=== PATIENT | female | born 1950 | race Caucasian/White ===

== ENCOUNTER 2017-07-30 16:45 | Emergency (ER) | payer MEDICARE, OTHER ==
--- NOTE | 2017-07-30 17:02 | ED.PDOC ---
History of Present Illness - General Chief Complaint: GI Problem Stated Complaint: nausea,stomach cramps,weakness Time Seen by Provider: 07/30/17 16:57 Source: patient Exam Limitations: no limitations - History of Present Illness Initial Comments: Radha Mas 67 y/o female stated thatshe had onset of lower abdominal cramps initially waxing waning but getting more intense for the last one hour and she had cold /clammy sweat during the episodes with feeling of nausea decided to come to ER.Stated had one loose BM this afternoon.Denies vomiting ,chest pains dysuria Timing/Duration: 1-3 hours Severity: moderate Improving Factors: nothing Worsening Factors: nothing Associated Symptoms: other - see hpi Allergies/Adverse Reactions: Allergies Promethazine [From Phenergan] Allergy (Verified 07/14/16 21:12) Home Medications: Ambulatory Orders Albuterol Inhaler [Ventolin Hfa Inhaler] 2 puff INH Q4H PRN 04/13/16 Atorvastatin Calcium [Lipitor] 40 mg PO BEDTIME 04/13/16 Citalopram Hydrobromide 40 mg PO DAILY 04/13/16 Insulin Regular (Human) [Novolin R U-100] 100 unit IJ TID 04/13/16 Levothyroxine Sodium 150 mcg PO DAILY 04/13/16 Lisinopril 20 mg PO DAILY 04/13/16 Pantoprazole Sodium 40 mg PO DAILY 04/13/16 Bupropion HCl [Wellbutrin Sr] 100 mg PO BID 07/14/16 Clopidogrel Bisulfate [Plavix] 75 mg PO QD 07/30/17 Fluticasone/Salmeterol 250/50 [Advair Diskus] 1 puff INH Q12H 07/30/17 Insulin Glargine [Toujeo Solostar] 66 unit SC DAILY 07/30/17 Review of Systems - Review of Systems Constitutional: States: no symptoms reported EENTM: States: no symptoms reported Respiratory: States: no symptoms reported Cardiology: States: no symptoms reported Gastrointestinal/Abdominal: States: see HPI Musculoskeletal: States: no symptoms reported Skin: States: no symptoms reported Past Medical History (General) - Patient Medical History Hx Asthma: Yes Hx Hypertension: Yes Hx Thyroid Disease: Yes Hx Diabetes: Yes Hx Gastroesophageal Reflux: Yes Hx MRSA: Yes MRSA Source:: Wound Surgical History: other - lower back,knee - Vaccination History Hx Tetanus, Diphtheria Vaccination: No Hx Influenza Vaccination: No Hx Pneumococcal Vaccination: No - Social History Hx Tobacco Use: No Hx Alcohol Use: No Hx Substance Use: No Hx Substance Use Treatment: No Hx Depression: Yes - Female History Patient : No Family Medical History - Family History Mother Family History: Unknown Living Status: Unknown Hx Family Congestive Heart Failure: Yes - parents Hx Cardiac Disease: Yes - parents Hx Family Diabetes: Yes - multiple family members Physical Exam - Physical Exam General Appearance: Alert, Comfortable, No apparent distress Eye Exam: bilateral normal Ears, Nose, Throat: hearing grossly normal, normal ENT inspection, normal pharynx Neck: non-tender, full range of motion, supple Respiratory: chest non-tender, lungs clear, normal breath sounds Cardiovascular/Chest: normal peripheral pulses, regular rate, rhythm, no murmur Peripheral Pulses: radial,right: 2+, radial,left: 2+, dorsalis pedis,right: 2+, dorsalis pedis,left: 2+ Gastrointestinal/Abdominal: normal bowel sounds, soft, no organomegaly, no pulsatile mass, tenderness - lower abdomen no peritoneal signs Back Exam: normal inspection, no CVA tenderness, no vertebral tenderness Extremity: non-tender, no pedal edema, no calf tenderness Neurologic: no motor/sensory deficits, alert, normal mood/affect, oriented x 3 Progress - Progress Progress: 07/30/17 18:06 Vital Signs 07/30/17 16:59 Temperature 98.5 F Pulse Rate [ 106 H Left Brachial] Respiratory 20 Rate Blood Pressure 162/78 [Left Arm] O2 Sat by Pulse 99 Oximetry - Results/Orders Results/Orders: Laboratory Tests 07/30/17 07/30/17 17:25 17:25 WBC 10.0 RBC 4.97 Hgb 12.5 Hct 38.1 MCV 76.7 L MCH 25.1 L MCHC 32.7 L RDW 15.0 H Plt Count 241 MPV 9.5 Absolute Neuts (auto) 7.50 H Absolute Lymphs (auto) 1.60 Absolute Monos (auto) 0.80 Absolute Eos (auto) 0.10 Absolute Basos (auto) 0.10 Neutrophils % 75.4 Lymphocytes % 15.5 L Monocytes % 7.5 Eosinophils % 1.1 Basophils % 0.5 PT 12.4 INR 1.100 PTT (SP) 28.4 D-Dimer, Quantitative < 200 Sodium 137 Potassium 3.7 Chloride 104 Carbon Dioxide 24 Anion Gap 12.7 BUN 12 Creatinine 0.86 BUN/Creatinine Ratio 14.0 Random Glucose 190 H Serum Osmolality 278.7 Calcium 9.1 Magnesium 1.6 L Total Bilirubin 0.6 Direct Bilirubin 0.1 Indirect Bilirubin 0.5 AST 24 ALT 12 Alkaline Phosphatase 111 Creatine Kinase 53 CK-MB (CK-2) 1.8 CK-MB (CK-2) % Not Reportable Troponin I < 0.02 B-Natriuretic Peptide 32.2 Serum Total Protein 7.2 Albumin 4.1 Lipase 17 L patient felt better after she had big bowel movement - EKG/XRAY/CT EKG: Sinus, Tachy, nonspecific ST T wave Chg Comments: heart rate-98 XRAY: chest - no acute disease Departure - Departure Clinical Impression: Abdominal cramping, Constipation by delayed colonic transit, Colitis Time of Disposition: 19:36 Disposition: Discharge to Home or Self Care Condition: Fair Departure Forms: ED Discharge - Pt. Copy, Patient Portal Self Enrollment Instructions: DI for Constipation, Increased Dietary Fiber May Improve Constipation Conditions With Pelvic Willis, Constipation (Alternative Therapy) Diet: bland diet Referrals: Chilo Prado MD [Primary Care Provider] - 1-2 Weeks Home Medications: Ambulatory Orders Albuterol Inhaler [Ventolin Hfa Inhaler] 2 puff INH Q4H PRN 04/13/16 Atorvastatin Calcium [Lipitor] 40 mg PO BEDTIME 04/13/16 Citalopram Hydrobromide 40 mg PO DAILY 04/13/16 Insulin Regular (Human) [Novolin R U-100] 100 unit IJ TID 04/13/16 Levothyroxine Sodium 150 mcg PO DAILY 04/13/16 Lisinopril 20 mg PO DAILY 04/13/16 Pantoprazole Sodium 40 mg PO DAILY 04/13/16 Bupropion HCl [Wellbutrin Sr] 100 mg PO BID 07/14/16 Clopidogrel Bisulfate [Plavix] 75 mg PO QD 07/30/17 Fluticasone/Salmeterol 250/50 [Advair Diskus] 1 puff INH Q12H 07/30/17 Insulin Glargine [Toujeo Solostar] 66 unit SC DAILY 07/30/17 Additional Instructions: Follow up with primary md 08/02/2017 Return to emergency room as needed
--- NOTE | 2017-07-30 18:01 | RAD ---
Examination: XR CHEST 1 VIEW dated 07/30/2017 4:59 PM CDT History: pain Comparison: 04/13/2016 Technique: Frontal view of the chest Findings: The lungs are clear bilaterally. Hypoventilatory exam. No pneumothorax or pleural effusion. The cardiomediastinal silhouette is within normal limits. Cervical spinal fusion hardware Impression: No acute disease. Electronically signed by: Car Bishop MD 07/30/2017 6:00 PM CDT
[2017-07-30] MEDS ORDERED: MAGNESIUM SULFATE PREMIX 2GM 2 GM in PREMIX BAG 1 BAG IVPB ONE (18:05)
[2017-07-30] MEDS ORDERED: SODIUM CHLORIDE 0.9% 500ML 500 ML IVS ONE (18:06)
[2017-07-30] MEDS ORDERED: MAGNESIUM SULFATE PREMIX 2GM 50 ML IVPB ONE (18:07)
--- NOTE | 2017-07-30 19:05 | CT ---
EXAM DESCRIPTION: Abdomen/Pelvis w/Contrast CLINICAL HISTORY: pain COMPARISON: None Available TECHNIQUE: Contiguous axial images of the abdomen and pelvis were obtained after the administration of intravenous contrast followed by reconstruction images.This exam was performed according to our departmental dose-optimization program, which includes automated exposure control, adjustment of the mA and/or kV according to patient size and/or use of iterative reconstruction technique. FINDINGS: Low-attenuation lesion of the left kidney could be a cyst. There is moderate stool in the colon. The appendix is not well seen. There is a small hiatal hernia. The descending colon is mildly featureless. Its wall is mildly thickened. There is no significant surrounding inflammation. The liver, spleen, pancreas and kidneys are within normal limits. There is no hydronephrosis. The gallbladder is unremarkable. Adrenal glands are within normal limits. Aorta is normal in caliber and tapering. No significant free fluid. No free air. No bowel obstruction. There is no stranding of the mesenteric fat. No evidence of periappendiceal inflammation. IMPRESSION: Findings suggest inflammation of the descending colon, and constipation. Electronically signed by: Vikash Ivory 07/30/2017 7:03 PM CDT
[2017-07-30 19:52] VITALS: BP 124/72; TEMP 98; O2SAT 97
== END 2017-07-30 19:45 | disposition home or self-care (01) ==
LOC: ER 16:45
DX: K52.9 Noninfective gastroenteritis and colitis, unspecified (principal); K59.01 Slow transit constipation; I10 Essential (primary) hypertension; E11.9 Type 2 diabetes mellitus without complications; K21.9 Gastro-esophageal reflux disease without esophagitis; Z79.4 Long term (current) use of insulin; Z79.899 Other long term (current) drug therapy
CPT/HCPCS: 36415; 71010; 74177; 80048; 80076; 81001; 82550; 82553; 83690; 83880; 84484; 85025; 85379; 85610; 85730; 93005; J3475; J7040

== ENCOUNTER 2019-01-21 01:50 | Emergency (ER) | payer OTHER ==
[2019-01-21] MEDS ORDERED: SODIUM CHLORIDE 0.9% 1000ML 1,000 ML IVS ONE (02:10)
--- NOTE | 2019-01-21 02:10 | ED.PDOC ---
History of Present Illness - General Chief Complaint: General Stated Complaint: "had a weaknes spell" at work Time Seen by Provider: 01/21/19 02:08 Source: patient Exam Limitations: no limitations - History of Present Illness Initial Comments: Radha Mas 68 y/o female stated she had been having on and off generalized body weakness since she had flu like illness in September this year.Denies recent chills /fever N/V/D,no slurred speech,no limb weakness.,no dizziness,no blurry vision.Stated she was at work tonight and was walking down the hallway but feels like not able to get where she wants to go.No history of fall,no SOB,no chest pains,no anorexia,no weight loss, has localized right subcostal discomfort prior to coming here.She is scheduled for cardiac cath 23 January 2019 by creative writing english professor .Has hx of sthma,DM@,hypothyroidism,htn.Had also ETT and echocardiogram last year which according to her no major findings. Timing/Duration: other - see hpi Severity: moderate Improving Factors: rest Worsening Factors: movement Associated Symptoms: other - see hpi Allergies/Adverse Reactions: Allergies Promethazine [From Phenergan] Allergy (Verified 07/14/16 21:12) Home Medications: Ambulatory Orders Albuterol Inhaler [Ventolin Hfa Inhaler] 2 puff INH Q4H PRN 04/13/16 Atorvastatin Calcium [Lipitor] 40 mg PO BEDTIME 04/13/16 Citalopram Hydrobromide 40 mg PO DAILY 04/13/16 Insulin Regular (Human) [Novolin R U-100] 100 unit IJ TID 04/13/16 Levothyroxine Sodium 150 mcg PO DAILY 04/13/16 Lisinopril 20 mg PO DAILY 04/13/16 Pantoprazole Sodium 40 mg PO DAILY 04/13/16 Bupropion HCl [Wellbutrin Sr] 100 mg PO BID 07/14/16 Clopidogrel Bisulfate [Plavix] 75 mg PO QD 07/30/17 Fluticasone/Salmeterol 250/50 [Advair Diskus] 1 puff INH Q12H 07/30/17 Insulin Glargine [Toujeo Solostar] 66 unit SC DAILY 07/30/17 Review of Systems - Review of Systems Constitutional: States: see HPI, weakness EENTM: States: no symptoms reported Respiratory: States: no symptoms reported Cardiology: States: no symptoms reported Gastrointestinal/Abdominal: States: no symptoms reported Genitourinary: States: no symptoms reported Musculoskeletal: States: no symptoms reported Skin: States: no symptoms reported Neurological: States: no symptoms reported Endocrine: States: no symptoms reported Hematologic/Lymphatic: States: no symptoms reported All other Systems: Reviewed and Negative, No Change from Baseline Past Medical History (General) - Patient Medical History Hx Asthma: Yes Hx Congestive Heart Failure: No Hx Hypertension: Yes Hx Thyroid Disease: Yes Hx Diabetes: Yes Hx Gastroesophageal Reflux: Yes Hx MRSA: Yes MRSA Source:: Wound Surgical History: other - lower back,knee,neck - Vaccination History Hx Tetanus, Diphtheria Vaccination: No Hx Influenza Vaccination: No Hx Pneumococcal Vaccination: No - Social History Hx Tobacco Use: No Hx Alcohol Use: No Hx Substance Use: No Hx Substance Use Treatment: No Hx Depression: Yes - Female History Patient : No Family Medical History - Family History Mother Family History: Unknown Living Status: Unknown Hx Family Congestive Heart Failure: Yes - parents Hx Cardiac Disease: Yes - parents Hx Family Diabetes: Yes - multiple family members Physical Exam - Physical Exam General Appearance: Alert, Comfortable, No apparent distress Eye Exam: bilateral normal Ears, Nose, Throat: hearing grossly normal, normal ENT inspection, normal pharynx Neck: non-tender, full range of motion, supple, normal inspection Respiratory: chest non-tender, lungs clear, normal breath sounds, no respiratory distress Cardiovascular/Chest: normal peripheral pulses, regular rate, rhythm, no murmur Peripheral Pulses: radial,right: 2+, radial,left: 2+ Gastrointestinal/Abdominal: normal bowel sounds, non tender, soft Back Exam: normal inspection, no CVA tenderness, no vertebral tenderness Extremity: no pedal edema, no calf tenderness Neurologic: no motor/sensory deficits, alert, oriented x 3 Skin Exam: normal color, warm/dry Progress - Progress Progress: 01/21/19 03:02 Vital Signs - 8 hr 01/21/19 02:05 Temperature 98.7 F Pulse Rate [ 99 H left] Respiratory 18 Rate Blood Pressure 168/91 [left] O2 Sat by Pulse 100 Oximetry 01/21/19 05:07 Vital Signs - 8 hr 01/21/19 02:05 Temperature 98.7 F Pulse Rate [ 99 H left] Respiratory 18 Rate Blood Pressure 168/91 [left] O2 Sat by Pulse 100 Oximetry - Results/Orders Results/Orders: 01/21/19 02:10 IV Care:Saline Lock per Protoc QSHIFT 01/21/19 02:15 EKG STAT Laboratory Results - last 24 hr 01/21/19 01/21/19 01/21/19 02:05 02:10 02:30 WBC 8.3 RBC 4.60 Hgb 11.2 L Hct 35.6 L MCV 77.4 L MCH 24.2 L MCHC 31.3 L RDW 14.7 H Plt Count 233 MPV 9.6 Absolute Neuts (auto) 5.00 Absolute Lymphs (auto) 2.40 Absolute Monos (auto) 0.70 Absolute Eos (auto) 0.20 Absolute Basos (auto) 0.00 Neutrophils % 59.7 Lymphocytes % 29.3 Monocytes % 8.2 Eosinophils % 2.4 Basophils % 0.4 Normal RBC Morphology 2+hypochromia PT 9.7 INR 0.97 PTT (SP) 24.7 Sodium 136 Potassium 3.5 L Chloride 100 L Carbon Dioxide 27 Anion Gap 12.5 BUN 18 Creatinine 0.71 BUN/Creatinine Ratio 25.4 H Random Glucose 181 H Serum Osmolality 278.4 Calcium 9.0 Magnesium 1.6 L Total Bilirubin 0.2 Direct Bilirubin < 0.1 Indirect Bilirubin 0.1 L AST 15 ALT 10 Alkaline Phosphatase 125 H Creatine Kinase 54 CK-MB (CK-2) 1.9 CK-MB (CK-2) % Not Reportable Troponin I < 0.02 Serum Total Protein 7.2 Albumin 3.9 TSH Urine Color Yellow Urine Appearance Clear Urine pH 6.0 Ur Specific [place] 1.015 Urine Protein Negative Urine Glucose (UA) Negative Urine Ketones Negative Urine Blood Negative Urine Nitrite Negative Urine Bilirubin Negative Urine Urobilinogen 0.2 Ur Leukocyte Esterase Negative Urine RBC 1-3 Urine WBC 3-5 H Ur Epithelial Cells 3-5 Urine Bacteria 1+ 01/21/19 01/21/19 02:57 04:14 WBC RBC Hgb Hct MCV MCH MCHC RDW Plt Count MPV Absolute Neuts (auto) Absolute Lymphs (auto) Absolute Monos (auto) Absolute Eos (auto) Absolute Basos (auto) Neutrophils % Lymphocytes % Monocytes % Eosinophils % Basophils % Normal RBC Morphology PT INR PTT (SP) Sodium Potassium Chloride Carbon Dioxide Anion Gap BUN Creatinine BUN/Creatinine Ratio Random Glucose Serum Osmolality Calcium Magnesium Total Bilirubin Direct Bilirubin Indirect Bilirubin AST ALT Alkaline Phosphatase Creatine Kinase CK-MB (CK-2) CK-MB (CK-2) % Troponin I < 0.02 Serum Total Protein Albumin TSH 0.51 Urine Color Urine Appearance Urine pH Ur Specific [place] Urine Protein Urine Glucose (UA) Urine Ketones Urine Blood Urine Nitrite Urine Bilirubin Urine Urobilinogen Ur Leukocyte Esterase Urine RBC Urine WBC Ur Epithelial Cells Urine Bacteria - EKG/XRAY/CT EKG: Sinus, nonspecific ST T wave Chg Comments: HR-92 XRAY: chest - no acute abnormalities Departure - Departure Clinical Impression: Malaise and fatigue, Hypomagnesemia Time of Disposition: 05:05 Disposition: Discharge to Home or Self Care Condition: Fair Departure Forms: ED Discharge - Pt. Copy, Patient Portal Self Enrollment Instructions: Fatigue (DC), Generalized Weakness Referrals: Chilo Prado MD [Primary Care Provider] - 1-2 Weeks Home Medications: Ambulatory Orders Albuterol Inhaler [Ventolin Hfa Inhaler] 2 puff INH Q4H PRN 04/13/16 Atorvastatin Calcium [Lipitor] 40 mg PO BEDTIME 04/13/16 Citalopram Hydrobromide 40 mg PO DAILY 04/13/16 Insulin Regular (Human) [Novolin R U-100] 100 unit IJ TID 04/13/16 Levothyroxine Sodium 150 mcg PO DAILY 04/13/16 Lisinopril 20 mg PO DAILY 04/13/16 Pantoprazole Sodium 40 mg PO DAILY 04/13/16 Bupropion HCl [Wellbutrin Sr] 100 mg PO BID 07/14/16 Clopidogrel Bisulfate [Plavix] 75 mg PO QD 07/30/17 Fluticasone/Salmeterol 250/50 [Advair Diskus] 1 puff INH Q12H 07/30/17 Insulin Glargine [Toujeo Solostar] 66 unit SC DAILY 07/30/17 Additional Instructions: Keep cardiac cath appointment with creative writing english professor Dr. Muñoz 23 january 2019;Return to Emergency Room as needed;Take Mag Ox -400 mg (over the counter)-one tablet once daily
[2019-01-21 02:37] VITALS: O2SAT 100
--- NOTE | 2019-01-21 02:51 | RAD ---
EXAM: XR Chest, 1 View CLINICAL HISTORY: The patient is 68 years old and is Female; weakness TECHNIQUE: Frontal view of the chest. COMPARISON: Chest radiograph July 30, 2017. FINDINGS: LUNGS: Unremarkable. No consolidation. PLEURAL SPACE: Unremarkable. No pneumothorax. HEART: Unremarkable. No cardiomegaly. MEDIASTINUM: Unremarkable. BONES/JOINTS: Postsurgical change of the lower cervical spine is present. IMPRESSION: No acute cardiopulmonary process. Electronically signed by: Janelle Coughlin MD 01/21/2019 2:49 AM CDT
[2019-01-21] MEDS ORDERED: MAGNESIUM SULFATE PREMIX 2GM 2 GM in PREMIX BAG 1 BAG IVPB ONE (03:17)
[2019-01-21] MEDS ORDERED: MAGNESIUM SULFATE PREMIX 2GM 50 ML IVPB ONE (03:29)
[2019-01-21 05:15] VITALS: BP 136/73; TEMP 98.2
== END 2019-01-21 05:20 | disposition home or self-care (01) ==
LOC: ER 01:50
DX: R53.81 Other malaise (principal); R53.83 Other fatigue; E83.42 Hypomagnesemia; R07.89 Other chest pain; F32.9 Major depressive disorder, single episode, unspecified; J45.909 Unspecified asthma, uncomplicated; I10 Essential (primary) hypertension; E03.9 Hypothyroidism, unspecified; E11.9 Type 2 diabetes mellitus without complications; K21.9 Gastro-esophageal reflux disease without esophagitis; Z79.4 Long term (current) use of insulin; Z79.899 Other long term (current) drug therapy; Z88.8 Allergy status to other drugs, medicaments and biological substances
CPT/HCPCS: 36415; 71045; 80048; 80076; 81001; 82550; 82553; 84443; 84484; 85025; 85610; 85730; 93005; J3475; J7030